=== PATIENT | male | born 1940 | race Caucasian/White ===

== ENCOUNTER 2018-10-31 11:48 | Day surgery (SDC) | payer MEDICARE, OTHER, SELFPAY ==
[2018-10-31 12:58] VITALS: BMI 32.2
[2018-10-31 13:03] VITALS: BP 139/78; PULSE 65; RESP 15; TEMP 36.6; O2SAT 93
[2018-10-31] MEDS: SODIUM CHLORIDE 0.9% 1,000 ML 200 ML IV (13:19)
--- NOTE | 2018-10-31 15:03 | PM.HP.1 ---
History of Present Illness Date Patient Seen: 10/31/18 Time Patient Seen: 15:03 Chief complaint: [id number] Narrative: Patient seen and examined, unchanged from recent office visit 10/23/2018 please see this note for further details Plan for diagnostic colonoscopy Patient History Surgical History (Updated 10/23/18 @ 13:54 by Christiana Okeefe RN) Hx of fusion of cervical spine (Resolved) Hx of lymph node biopsy (Resolved) Family History (Updated 10/23/18 @ 13:55 by Christiana Okeefe RN) Brother Cancer Social History (Updated 10/23/18 @ 13:56 by Christiana Okeefe RN) marital status: household members: spouse occupational status: previously employed Smoking Status: Never smoker alcohol intake: current substance use type: does not use Family & Social History Family History (Updated 10/23/18 @ 13:55 by Christiana Okeefe RN) Brother Cancer Social History: household members spouse Tobacco & Substance use: Smoking Status Never smoker alcohol intake current Meds Home Medications Medication Instructions Recorded Confirmed Type atorvastatin 20 mg tablet 20 mg PO DAILY 10/23/18 10/31/18 History paroxetine 20 mg tablet 20 mg PO DAILY 10/23/18 10/31/18 History Allergies Allergy/AdvReac Type Severity Reaction Status Date / Time tetracycline Allergy Unknown Verified 10/31/18 12:53 Exam Vital Signs (past 8 hours): - 10/31/18 13:03 Temperature 97.8 F Pulse Rate 65 Respiratory Rate 15 Blood Pressure 139/78 Pulse Oximetry 93 Oxygen Delivery Method Room Air
[2018-10-31] MEDS: fentaNYL 250 MCG/5 ML INJ IV (15:37)
[2018-10-31] MEDS: MIDAZOLAM 5 MG/5 ML VIAL IV (15:37)
--- NOTE | 2018-10-31 15:37 | PM.OP.ENDO ---
Operative Date/Time/Diagnoses Date of procedure: 10/31/18 Time of procedure: 15:37 Pre-op diagnosis: Change in stool caliber Post-op diagnosis: same Procedure & Clinicians Study performed: Screening colonoscopy -complete Same procedure as scheduled: Yes Indications: 78-year-old man with personal history of colon polyps presents for years after lasts screening colonoscopy for evaluation of reduced stool caliber. Surgeon: Ganesh Jean Procedure Notes SCOAP/Timeout: Completed Procedure in detail: Patient was brought to the endoscopy suite, time-out was completed. He was sedated with a total of 5 mg of midazolam and 150 mcg of fentanyl over the course of his entire procedure. Digital rectal exam was performed were the hemorrhoids as previously described. There are no masses. There was no nodularity within the prostate. 160 cm colonoscope was introduced through the anus and passed through the folds and turns of the colon until the cecum was identified. A a prominent ileocecal valve was seen as was the gross foot, despite careful looking was unable to identify a clear appendiceal orifice. The colonoscope was then back slowly out visualizing the mucosa. At the level of the distal rectum the scope was retroflexed. There were a few scattered sigmoid diverticula but otherwise no mucosal based lesions. Prep was adequate Several enlarged hemorrhoidal columns as documented on recent clinic note Scope withdrawal time: 11min Sedation minutes: 21 Findings: diverticulosis and internal hemorrhoids Specimen(s): none sent Complications: none Impression: 1. Scattered sigmoid diverticula 2. Internal hemorrhoids Recommendations: Colonscopy in 5 years Plan for aftercare: PACU THEN HOME Follow up: weeks Disposition: PACU
[2018-10-31 15:40] VITALS: BP 123/74; PULSE 60; RESP 12; TEMP 36.4; O2SAT 97
[2018-10-31 15:45] VITALS: BP 110/68; PULSE 61; RESP 12; TEMP 36.6; O2SAT 95
[2018-10-31 15:50] VITALS: BP 109/70; PULSE 60; RESP 14; TEMP 36.4; O2SAT 92
[2018-10-31 16:00] VITALS: BP 117/74; PULSE 61; RESP 12; TEMP 36.4; O2SAT 94
[2018-10-31 16:05] VITALS: BP 113/75; PULSE 65; RESP 13; TEMP 36.9; O2SAT 95
== END 2018-10-31 16:27 | disposition home or self-care (01) ==
PROVIDERS: PCP Family Medicine; Visit Provider Surgery
PROC: 0DJD8ZZ Inspection of Lower Intestinal Tract, Via Natural or Artificial Opening Endoscopic (ICD-10-PCS; CPT 45378; principal; 2018-10-31 14:15)
DX: R19.4 Change in bowel habit (principal); K57.30 Diverticulosis of large intestine without perforation or abscess without bleeding; K64.4 Residual hemorrhoidal skin tags
CPT/HCPCS: 45378; 99152; J2250; J3010

== ENCOUNTER → 2019-05-08 12:06 | Outpatient (CLI) | payer MEDICARE, OTHER, SELFPAY ==
--- NOTE | 2019-05-08 12:11 | DI.CT.S_ITS ---
PROCEDURE: CT CERVICAL SPINE WO CON INDICATIONS: cervicalgia TECHNIQUE: Noncontrast 3 mm thick sections acquired from the skull base to the T4 level. Sagittal and coronal reformats were then constructed. For radiation dose reduction, the following was used: automated exposure control, adjustment of mA and/or kV according to patient size. COMPARISON: None. FINDINGS: Image quality: Excellent. Bones: No fractures or dislocations. Visualized superior ribs are intact. Postoperative changes are seen, with a fixation hardware at C5-C6, with a disc spacer seen. No findings of hardware failure or hardware loosening are seen. Degenerative changes are seen, with moderate to severe disc space narrowing at C3 to or in C6-C7. Mild degenerative changes are seen elsewhere. Soft tissues: Prevertebral soft tissues are normal in thickness. No paravertebral hematomas. No apical pneumothoraces. IMPRESSION: No acute abnormality is seen. Unremarkable C5-C6 postoperative change. Focal C3-C4 and C6-C7 degenerative change. Dictated by: Castillo Maldonado M.D. on 05/08/2019 at 11:26 Approved by: Castillo Maldonado M.D. on 05/08/2019 at 11:27
== END ==
PROVIDERS: PCP Family Medicine; Visit Provider Orthopaedic Surgery Orthopaedic Surgery of the Spine
DX: M54.2 Cervicalgia (principal); M47.812 Spondylosis without myelopathy or radiculopathy, cervical region
CPT/HCPCS: 72125

== ENCOUNTER 2019-06-02 13:47 | Emergency (ER) | payer MEDICARE, OTHER, SELFPAY ==
[2019-06-02 13:52] VITALS: BP 171/88; PULSE 74; RESP 18; TEMP 37.1; O2SAT 95; BMI 32.7
--- NOTE | 2019-06-02 13:57 | DI.RAD.S_ITS ---
PROCEDURE: XR CHEST 2V INDICATIONS: productive cough. TECHNIQUE: 2 views of the chest were acquired. COMPARISON: None. FINDINGS: Surgical changes and devices: Postoperative changes of lower cervical spine are incidentally noted, but not adequately evaluated. Lungs and pleura: Increased attenuation is identified within the right infrahilar region. No lobar consolidation, effusion, or pneumothorax is evident. Mediastinum: Mediastinal contours are normal. Heart size is normal. There is aortic atherosclerosis. Bones and chest wall: No suspicious bony abnormalities. Degenerative changes of the spine are present. Soft tissues appear unremarkable. IMPRESSION: Probable right infrahilar pneumonia. Dictated by: Vu Bojorquez M.D. on 06/02/2019 at 13:10 Approved by: Vu Bojorquez M.D. on 06/02/2019 at 13:11
[2019-06-02 15:11] VITALS: O2SAT 98
[2019-06-02 15:25] LABS: Influenza A - CEPHEID Flu A NEGATIVE (NEGATIVE); Influenza B - CEPHEID Flu B NEGATIVE (NEGATIVE)
--- NOTE | 2019-06-02 15:30 | ED_ITS ---
HPI - URI/Sore Throat <GABBY Simpson - Last Filed: 06/02/19 15:41> General Chief Complaint: Upper Respiratory Symptoms Stated Complaint: cold not clearing up Time Seen by Provider: 06/02/19 14:40 Source: patient and family Mode of arrival: Ambulatory Limitations: no limitations History of Present Illness HPI Narrative: The patient is a 79-year-old male former smoker with history of lymph node biopsy and cervical spine fusion who presents with his for a cold that's not getting better. States he has had cough and generalized cold symptoms for the past week. Two days ago his cough became productive on occasion. He states he has sore throat, but it's getting better. He denies any ear pain, chest pain, shortness of breath abdominal pain nausea vomiting or diarrhea. is concerned about pneumonia. Denies any fevers. Related Data Home Medications Medication Instructions Recorded Confirmed atorvastatin 20 mg tablet 20 mg PO DAILY 10/23/18 11/07/18 paroxetine HCl 20 mg tablet 20 mg PO DAILY 10/23/18 11/07/18 Previous Rx's Medication Instructions Recorded amoxicillin-pot clavulanate 1 tab PO BID #14 tab 06/02/19 [Augmentin] azithromycin See Rx Instructions .ROUTE 06/02/19 .COMPLEX #6 tab Allergies Allergy/AdvReac Type Severity Reaction Status Date / Time tetracycline Allergy Unknown Verified 11/07/18 11:01 Review of Systems <[facility] - Last Filed: 06/02/19 15:41> Review of Systems Narrative: GENERAL: See HPI HEENT: HPI RESPIRATORY: See HPI CARDIOVASCULAR: Denies chest pain, palpitations, orthopnea, edema, GASTROINTESTINAL: Denies nausea, vomiting, abdominal pain, diarrhea, constipation, melena. : Denies dysuria, frequency, incontinence, hematuria, urinary retention. MUSCULOSKELETAL: denies weakness, joint pain, or bony pain SKIN: Denies rash, skin lesions, or other NEUROLOGIC: Denies weakness, headache, numbness, change in speech, confusion, seizures, incoordination. PSYCHIATRIC: No concerning psychosocial issues. 12 point review of systems is negative except for those stated above Patient History <[facility] - Last Filed: 06/02/19 15:41> Surgical History (Updated 10/23/18 @ 13:54 by Christiana Okeefe RN) Hx of fusion of cervical spine (Resolved) Hx of lymph node biopsy (Resolved) Family History (Updated 10/23/18 @ 13:55 by Christiana Okeefe RN) Brother Cancer Social History (Updated 10/23/18 @ 13:56 by Christiana Okeefe RN) marital status: household members: spouse occupational status: previously employed Smoking Status: Former smoker alcohol intake: current substance use type: does not use Smoking Status: Former smoker alcohol intake frequency: holidays/special occasions only Substance Use Type: does not use Exam <FRANCISCO Simpson-BC - Last Filed: 06/02/19 15:41> Narrative Exam Narrative: GENERAL: Obese male in no acute distress HEAD: Atraumatic. Normocephalic. No temporal or scalp tenderness. EYES: Pupils equal round and reactive. Extraocular motions intact. No scleral icterus. No injection or drainage. ENT: Nose without bleeding, purulent drainage or septal hematoma. Throat without erythema, tonsillar hypertrophy or exudate. Uvula midline. Airway patent. Bilateral TMs pearly beltrán NECK: Trachea midline. No JVD or lymphadenopathy. Supple, nontender, no meningeal signs. CARDIOVASCULAR: Regular rate and rhythm RESPIRATORY: Clear to auscultation. Breath sounds equal bilaterally. No wheezes, rales, or rhonchi. No cough. No increased respiratory effort. No accessory muscle use. GASTROINTESTINAL: Abdomen soft, non-tender, nondistended. No palpable masses. No guarding. Active bowel sounds all 4 quadrants EXTREMITIES: No clubbing, cyanosis, or edema. No joint tenderness, effusion, or edema noted. BACK: Nontender without deformity or crepitance. No flank tenderness. NEURO: AOx3. Alert, interactive, age appropriate SKIN: No rash or erythema visible skin Initial Vital Signs Initial Vital Signs: Vital Signs Temperature 98.7 F 06/02/19 13:52 Pulse Rate 74 06/02/19 13:52 Respiratory Rate 18 06/02/19 13:52 Blood Pressure 171/88 H 06/02/19 13:52 Pulse Oximetry 95 06/02/19 13:52 <Sarwat Michael DO - Last Filed: 06/02/19 19:08> Initial Vital Signs Initial Vital Signs: Vital Signs Temperature 98.7 F 06/02/19 13:52 Pulse Rate 74 06/02/19 13:52 Respiratory Rate 18 06/02/19 13:52 Blood Pressure 171/88 H 06/02/19 13:52 Pulse Oximetry 95 06/02/19 13:52 Course <AZ Simpson - Last Filed: 06/02/19 15:41> Orders Ordered: ED Orders 06/02/19 13:57 XR chest 2V Stat 06/02/19 14:38 Influenza A & B (PCR) Stat 06/02/19 14:49 RT Consult Eval and Treat NOW Vital Signs Vital signs: Vital Signs - 8 hr 06/02/19 13:52 06/02/19 15:11 06/02/19 15:47 Temperature 98.7 F Pulse Rate 74 77 Respiratory Rate 18 16 Blood Pressure 171/88 H 168/84 H Pulse Oximetry 95 98 97 <Sarwat Michael DO - Last Filed: 06/02/19 19:08> Orders Ordered: ED Orders 06/02/19 13:57 XR chest 2V Stat 06/02/19 14:38 Influenza A & B (PCR) Stat 06/02/19 14:49 RT Consult Eval and Treat NOW Vital Signs Vital signs: Vital Signs - 8 hr 06/02/19 13:52 06/02/19 15:11 06/02/19 15:47 Temperature 98.7 F Pulse Rate 74 77 Respiratory Rate 18 16 Blood Pressure 171/88 H 168/84 H Pulse Oximetry 95 98 97 MDM - URI/Sore Throat <AZ Simpson - Last Filed: 06/02/19 15:41> Lab Data Labs: Lab Results 06/02/19 Range/Units 14:38 Influenza A (RT-PCR) Flu a negative (NEGATIVE) Influenza B (RT-PCR) Flu b negative (NEGATIVE) MDM Narrative Medical decision making narrative: The patient is a 79-year-old male who presents with a chief complaint of a productive cough and cold symptoms that are not going away. Cold symptoms started 7 days ago, productive cough started yesterday. He is oxygenating well in the emergency department with no acute respiratory concerns. X-rays indicative of a right infrahilar pneumonia. Flu test is negative. As per up-to-date recommendations for community-acquired pneumonia utilizing they're all read them with comorbidity of age greater than 65, in no penicillin allergy, I'll start the patient Augmentin plus a macrolide as he is allergic to doxycycline. The patient and his were in accordance of this have no acute concerns. Discussed at length follow up with primary care provider, rest, pushing fluids. Patient was evaluated by respiratory therapist while in the emergency department received incentive spirometry teaching. Patient have no questions or concerns upon discharge and state understanding of return precautions as well as follow-up care. <Sarwat Michael, - Last Filed: 06/02/19 19:08> Lab Data Labs: Lab Results 06/02/19 Range/Units 14:38 Influenza A (RT-PCR) Flu a negative (NEGATIVE) Influenza B (RT-PCR) Flu b negative (NEGATIVE) Discharge Plan Departure Patient Disposition: Home Clinical Impression: Pneumonia Qualifiers: Pneumonia type: due to unspecified organism Laterality: right Lung location: unspecified part of lung Qualified Code(s): J18.9 - Pneumonia, unspecified organism Discharge Date/Time: 06/02/19 15:47 Instructions: How to Use an Incentive Spirometer, DI for Pneumonia -- Adult Activity Restrictions/Additional Instructions: Your x-rays concerning for right-sided pneumonia. I have sent prescriptions of 2 different antibiotics to [facility] Please use the incentive spirometer as we discussed. Today your flu test came back negative. Please come back to the emergency department for any acute concerns. Prescriptions: New azithromycin 250 mg tablet See Rx Instructions .ROUTE .COMPLEX Qty: 6 RF: 0 amoxicillin-pot clavulanate [Augmentin] 875-125 mg tablet 1 tab PO BID Qty: 14 RF: 0 No Action atorvastatin 20 mg tablet 20 mg PO DAILY RF: 0 paroxetine HCl 20 mg tablet 20 mg PO DAILY RF: 0 Referrals: Getachew Durant MD [Primary Care Provider] -
[2019-06-02 15:47] VITALS: BP 168/84; PULSE 77; RESP 16; O2SAT 97
== END 2019-06-02 15:47 | disposition home or self-care (01) ==
PROVIDERS: Emergency Provider Nurse Practitioner Family; PCP Family Medicine
DX: J18.9 Pneumonia, unspecified organism (principal)
CPT/HCPCS: 71046; 87502; 99283

== ENCOUNTER 2019-07-16 09:54 | Day surgery (SDC) | payer MEDICARE, OTHER, SELFPAY ==
[2019-07-16] VITALS (7 sets, daily range): BP systolic 104–149; BP diastolic 72–89; PULSE 63–71; RESP 10–16; TEMP 36–36.7; O2SAT 90–95; BMI 32.2
--- NOTE | 2019-07-16 | PATH_ITS ---
[facility] Accession Number: [id number] . 01 Material submitted: . esophagus, E-G Junction - GE JUNCTION BIOPSY . 02 Diagnosis: Gastroesophageal Junction, Biopsy: Squamocolumnar junctional mucosa with mild chronic inflammation. Negative for specialized intestinal metaplasia, dysplasia or malignancy. V 07/17/2019 1320 Local . 02 Electronically signed: . Demetrio Landeros MD, PhD, Pathologist NPI- [id number] . 01 Gross description: . GE JUNCTION BIOPSY: Received in formalin are 3 fragment(s) of haq, soft tissue measuring 0.1 x 0.1 x 0.1 cm to 0.2 x 0.1 x 0.1 cm submitted entirely in 1 cassette(s) /[facility] [place] 07/16/20193 Local . 02 Pathologist provided ICD-10: R13.10, K20.9 . 02 CPT . 747611 Performed at: 01 [facility] [address], [place], [place] [id number] MD Jose Poe MD Phone: [phone] Performed at: 02 [facility] [address] [place], [place] [id number] MD Hailey Harman MD Phone: [phone]
[2019-07-16] MEDS: SODIUM CHLORIDE 0.9% 1,000 ML 200 ML IV (10:47)
--- NOTE | 2019-07-16 11:23 | PM.HP.1 ---
History of Present Illness History of Present Illness Date Patient Seen: 07/16/19 Time Patient Seen: 11:37 Chief complaint: [id number] Narrative: 79-year-old male history of gastroesophageal reflux disease and now with new onset dysphagia dysphagia. Feels as if food including meats and sometimes bread products are becoming stuck in his lower esophagus. No history of prior esophagoduodenoscopy. No chest pain no unintentional weight loss no changes in voice. Patient History Medical History (Updated 07/16/19 @ 11:42 by Kaushik Juarez MD) GERD (gastroesophageal reflux disease) (Acute) HTN (hypertension) (Acute) Surgical History (Updated 10/23/18 @ 13:54 by Christiana Okeefe, HANNAH) Hx of fusion of cervical spine (Resolved) Hx of lymph node biopsy (Resolved) Family & Social History Family History (Updated 10/23/18 @ 13:55 by Christiana Okeefe, HANNAH) Brother Cancer Social History: household members spouse Tobacco & Substance use: Smoking Status Former smoker alcohol intake current alcohol intake frequency holiday/special occasion Substance Use Type does not use Meds Home Medications and Allergies Home Medications Medication Instructions Recorded Confirmed Type atorvastatin 20 mg tablet 20 mg PO DAILY 10/23/18 07/16/19 History Allergies Allergy/AdvReac Type Severity Reaction Status Date / Time tetracycline Allergy Unknown joints Verified 07/16/19 10:36 ache Review of Systems Review of Systems Narrative: A 10 point review of systems is negative except as noted in the HPI Exam Vital Signs (past 8 hours): - 07/16/19 10:37 Temperature 96.8 F L Pulse Rate 66 Respiratory Rate 14 Blood Pressure 149/89 H Pulse Oximetry 95 Oxygen Delivery Method Room Air Narrative Exam Narrative: General-no acute distress, well nourished HEENT-moist mucous membranes, no scleral icterus Neck-supple, no lymphadenopathy Chest- non labored respirations, clear to auscultation bilaterally Cardiac-regular rate no peripheral edema Abdomen-soft, nontender, non distended Extremities-warm, well perfused Neurological-alert and oriented, no focal deficits Assessment & Plan Assessment and plan (1) Dysphagia: Current visit: Yes Status: Acute Assessment & Plan narrative: 79-year-old man chronic gastroesophageal reflux disease with new onset dysphagia for which esophagoduodenoscopy with possible biopsy and dilation is indicated. We discussed the technical nature of the procedure including its risks of bleeding infection perforation need for further procedure. His questions have been answered and he is in agreement with this plan
[2019-07-16] MEDS: LIDOCAINE 4% SOLN 50 ML 20 ML TOP (11:41)
[2019-07-16] MEDS: fentaNYL 250 MCG/5 ML INJ IV (11:43)
[2019-07-16] MEDS: MIDAZOLAM 5 MG/ML VIAL 4 MG IV (11:43)
--- NOTE | 2019-07-16 11:43 | PM.OP.ENDO ---
Operative Date/Time/Diagnoses Date of procedure: 07/16/19 Time of procedure: 11:43 Pre-op diagnosis: GERD Dysphagia Post-op diagnosis: same Procedure & Clinicians Study performed: Esophagoduodenoscopy Same procedure as scheduled: Yes Indications: Chronic GERD new onset dysphagia Surgeon: Kaushik Juarez Procedure Notes SCOAP/Timeout: Performed Procedure in detail: Patient placed in left lateral decubitus position. Time out was performed. Procedural sedation was administered with Versed and Fentanyl. A bite block was placed. the scope was inserted into the mouth and advanced through the esophagus and into the stomach. The pylorus was intubated and the duodenum was normal. The scope was retroflexed within the stomach and there was a small hiatal hernia. No ulcers, or gastritis. The scope was withdrawn into the esophagus the Z line was seen at 40 cm from the incisions. There was mild esophagitis, no esophageal masses or strictures. 4 random biopsies of the Z line were taken with forceps. Stomach was desufflated and scope removed. Patient tolerated procedure well. Complications: none Post-procedure Recommendations: Reflux diet Disposition: same day surgery
--- NOTE | 2019-07-16 12:12 | SUR.PHASEI ---
Patient sitting up taking ice chips without difficulty. Removed from oxygen via nasal cannula to assess room air saturation. Denies any pain at this time and has no difficulty swallowing. Encouraged deep breathing.
== END 2019-07-16 12:50 | disposition home or self-care (01) ==
PROVIDERS: PCP Family Medicine; Referring Provider Surgery; Visit Provider Surgery
PROC: 0DJ08ZZ Inspection of Upper Intestinal Tract, Via Natural or Artificial Opening Endoscopic (ICD-10-PCS; CPT 43235; principal; 2019-07-16 11:30)
DX: K44.9 Diaphragmatic hernia without obstruction or gangrene (principal); K21.0 Gastro-esophageal reflux disease with esophagitis
CPT/HCPCS: 43239; J2250; J3010

== ENCOUNTER → 2021-04-08 13:34 | Outpatient (CLI) | payer MEDICARE, SELFPAY ==
--- NOTE | 2021-04-08 | DI.US.S_ITS ---
PROCEDURE: US SCROTUM INDICATIONS: TESTICULAR MASS TECHNIQUE: Real-time scanning was performed of the scrotum and testicles, with image documentation. Color and pulse Doppler interrogation was performed of both testicles. COMPARISON: None. FINDINGS: Right: Testicle is normal in size at 3.5 x 2.4 x 1.9 cm, and mildly heterogeneous in echotexture. Epididymis is normal in overall size and morphology. No hydrocele or varicoceles. Diffuse right scrotal wall thickening measures up to 6 mm in size is seen with increased vascularity. Left: Testicle is normal in size at 3.5 x 2.6 x 2.0 cm, and mildly heterogeneous in echotexture. Epididymis is normal in overall size. Ill-defined hypoechoic area involving left epididymal body and measures 1 x 0.5 x 0.5 cm in size with internal vascularity. No hydrocele or varicoceles. Diffuse left scrotal wall thickening is seen measures up to 4.7 mm with increased vascularity. Doppler: Color and pulse Doppler demonstrate normal and symmetric arterial flow in both testicles. IMPRESSION: 1. Right worse than left bilateral scrotal wall thickening which may represent cellulitis versus edema. No discrete testicular lesion. No evidence of testicular torsion. No hydrocele. 2. 1 x 0.5 x 0.5 cm hyperechoic area within left epididymal body with internal vascularity and is of indeterminate nature. Sonographic follow-up is recommended. No abnormality is seen in right epididymis. Dictated by: Madi Viera M.D. on 04/08/2021 at 15:45 Approved by: Madi Viera M.D. on 04/08/2021 at 15:48
== END ==
PROVIDERS: PCP Family Medicine; Referring Provider Nurse Practitioner Family; Visit Provider Nurse Practitioner Family
DX: N50.89 Other specified disorders of the male genital organs (principal)
CPT/HCPCS: 76870

== ENCOUNTER → 2021-05-06 13:05 | Outpatient (CLI) | payer MEDICARE, SELFPAY ==
--- NOTE | 2021-05-06 | DI.CT.S_ITS ---
PROCEDURE: CT HEAD/BRAIN WO CON INDICATIONS: Generalized enlarged lymph nodes TECHNIQUE: Noncontrast 4.5 mm thick angled axial sections acquired from the foramen magnum to the vertex, with coronal and sagittal reformats. For radiation dose reduction, the following was used: automated exposure control, adjustment of mA and/or kV according to patient size. COMPARISON: None. FINDINGS: Image quality: Excellent. CSF spaces: Basal cisterns are patent. No extra-axial fluid collections. The ventricles are symmetric in size and shape. Brain: No intracranial bleeds or masses. There is cerebral volume loss for age, with resultant ventricular and sulcal prominence. There are periventricular and deep white matter chronic small vessel ischemic changes. Bilateral dystrophic basal ganglia calcifications. There is intracranial internal carotid artery atherosclerosis. Skull and face: Calvarium and visualized facial bones appear intact, without suspicious lesions. Sinuses: Visualized sinuses and mastoids are clear. IMPRESSION: 1. No acute intracranial abnormalities. Noncontrast enhanced CT is not sensitive for cancer evaluation. If clinically indicated, MRI with and without contrast would be helpful. 2. Cerebral volume loss and chronic microvascular ischemic changes. Dictated by: Ronen Orlando M.D. on 05/06/2021 at 13:38 Approved by: Ronen Orlando M.D. on 05/06/2021 at 13:40
== END ==
PROVIDERS: PCP Family Medicine; Referring Provider Family Medicine; Visit Provider Family Medicine
DX: R59.1 Generalized enlarged lymph nodes (principal)
CPT/HCPCS: 70450

== ENCOUNTER → 2021-06-17 13:20 | Outpatient (CLI) | payer MEDICARE, SELFPAY ==
--- NOTE | 2021-06-17 | DI.MRI.S_ITS ---
PROCEDURE: MR ORBITS FACE NECK WO/W CON INDICATIONS: Generalized enlarged lymph nodes TECHNIQUE: Sagittal/axial/coronal T1 spin echo and STIR. After the administration of contrast, axial/coronal/sagittal T1 fast spin echo with fat saturation through the neck. COMPARISON: [facility], CT, CT CERVICAL SPINE WO CON, 05/08/2019, 12:07. [facility], CT, CT HEAD/BRAIN WO CON, 05/06/2021, 13:28. FINDINGS: Image quality: Excellent. Lymph nodes: Borderline prominent lymph nodes are seen. No frankly enlarged lymph nodes are detected. Vessels: Visualized vasculature appears normal, with normal flow voids and enhancement. Neck spaces: The oropharynx, nasopharynx and pharynx are unremarkable, without mucosal lesions seen. Vocal cords, false vocal cords, pyriform sinuses, epiglottis, vallecula, and tongue base all appear normal. Extramucosal spaces of the neck also appear unremarkable. Glands: Within the inferior aspect of the right parotid, there is a 1.5 cm nodule seen, as on series 7, image 22, which demonstrates significant enhancement, as on series 12 image 22. An additional poorly defined focus of abnormal enhancement can be seen involving the right superior parotid, as on series 12, image 13 that measures up to 2.8 cm. The submandibular glands appear normal. Thyroid gland demonstrates no significant MRI abnormality. Miscellaneous: Visualized brain and orbits appear normal. Lung apices appear clear. Superficial soft tissues appear normal. Visualized sinuses and mastoids appear clear. Bones: Marrow has normal overall signal. Generalized degenerative changes are seen. Anterior fixation hardware is seen at C5-C6. Note is made of abnormal fluid within the left mastoid air cells. IMPRESSION: No frankly enlarged lymph nodes are seen. The right parotid gland is abnormal, with a 2.8 cm poorly defined lesion superiorly and a 1.5 cm hyperenhancing nodule seen inferiorly. Differential diagnosis includes pleomorphic adenoma and Warthin's tumor as well as parotid carcinoma. Please correlate with known history and physical examination findings. Further workup is recommended, either beginning with biopsy or contrast-enhanced neck CT for further evaluation. Abnormal left-sided mastoid air cell fluid can be seen. Incidental note is made of: C5-C6 postoperative hardware. Dictated by: Castillo Maldonado M.D. on 06/17/2021 at 13:53 Approved by: Castillo Maldonado M.D. on 06/17/2021 at 13:59
== END ==
PROVIDERS: PCP Family Medicine; Referring Provider Family Medicine; Visit Provider Family Medicine
DX: R59.1 Generalized enlarged lymph nodes (principal); K11.9 Disease of salivary gland, unspecified; Z98.1 Arthrodesis status
CPT/HCPCS: 70543

== ENCOUNTER → 2021-06-24 09:02 | Outpatient (CLI) | payer MEDICARE, SELFPAY ==
--- NOTE | 2021-06-24 | DI.CT.S_ITS ---
PROCEDURE: CT SOFT TISSUE NECK W CON INDICATIONS: LESION OF PAROTID GLAND, JAW PAIN TECHNIQUE: After the administration of intravenous contrast, 3.0 mm axial sections acquired from the sella to the aortic arch. Additional oblique axial 3.0 mm sections acquired through the pharynx. 3 mm thick coronal and sagittal reformats were generated. For radiation dose reduction, the following was used: automated exposure control. COMPARISON: [facility], MR, MR ORBITS FACE NECK WO/W CON, 06/17/2021, 13:47. FINDINGS: Image quality: Excellent. Lymph nodes: No enlarged lymph nodes seen throughout the neck. Vessels: Visualized vasculature appears patent. Neck spaces: The oropharynx, nasopharynx, and pharynx demonstrate no mucosal lesions. The vocal cords, false vocal cords, pyriform sinuses, epiglottis, vallecula, and tongue base all appear normal. Extramucosal spaces appear unremarkable. Glands: Right parotid masses are again seen. Superiorly, adjacent to the external auditory canal, there is a 2.3 x 1.8 x 1.8 cm mass. More inferiorly within the parotid, there is an additional poorly defined mass seen that measures 1.3 x 1.4 x 1.1 cm. No left parotid masses are seen. The submandibular glands appear normal. Thyroid gland demonstrates no significant abnormality. Miscellaneous: Visualized brain and orbits appear normal. Lung apices appear clear. Superficial soft tissues appear normal. Bones: No suspicious bony lesions. Visualized sinuses and mastoids appear unremarkable. Cervical spine degenerative changes are seen throughout. Anterior fixation hardware can be seen at C5-C6, without findings of failure or loosening. IMPRESSION: Right-sided parotid masses are again seen. There is strong imaging concern for malignancy. Please correlate with biopsy results. No enlarged lymph nodes are detected. Dictated by: Castillo Maldonado M.D. on 06/24/2021 at 15:54 Approved by: Castillo Maldonado M.D. on 06/24/2021 at 16:00
[2021-06-24 11:57] LABS: Blood Urea Nitrogen 15 mg/dL (9-20); Calcium 9.7 mg/dL (8.4-10.2); Carbon Dioxide 28 mmol/L (22-32); Chloride 104 mmol/L (98-107); Estimated Glomerular Filt Rate > 60.0 mL/min (>60); Glucose 153 mg/dL (80-110); HEMOLYSIS < 15 (0-50); Potassium 4.3 mmol/L (3.4-5.1); Sodium 140 mmol/L (137-145)
== END ==
PROVIDERS: PCP Nurse Practitioner Family; Referring Provider Nurse Practitioner Family; Visit Provider Nurse Practitioner Family
DX: K11.9 Disease of salivary gland, unspecified; R93.89 Abnormal findings on diagnostic imaging of other specified body structures; R68.84 Jaw pain; N14.1 Nephropathy induced by other drugs, medicaments and biological substances; T50.8X5A Adverse effect of diagnostic agents, initial encounter
CPT/HCPCS: 36415; 70491; 80048; Q9967